=== PATIENT | female | born 1965 | race Two or more races ===

== ENCOUNTER 2017-03-03 06:46 | Emergency (ER) | payer OTHER ==
[~2017-03-03] VITALS: Ht 162.6 cm; Wt 65.8 kg
[~2017-03-03 06:46] MED LIST: LEVAQUIN500 MG PO; VALSARTAN-HCTZ1 EAC1
[2017-03-03] MEDS ORDERED: NORVASC2.5 M1 (07:18)
[2017-03-03] MEDS ORDERED: DIOVAN320 MG (07:19)
[2017-03-03] MEDS ORDERED: TOPROL XL50 M1 (07:19)
== END 2017-03-03 10:18 | disposition home or self-care (01) ==
LOC: ER 06:46
DX: B34.9 Viral infection, unspecified (principal)

== ENCOUNTER 2017-06-19 08:20 | Outpatient (CLI) | payer OTHER ==
[~2017-06-19 08:20] MED LIST changes: +DIOVAN320 MG; +NORVASC2.5 M1; +TOPROL XL50 M1
== END 2017-06-19 08:22 | disposition home or self-care (01) ==
LOC: RAD 08:20
DX: R91.8 Other nonspecific abnormal finding of lung field (principal)

== ENCOUNTER → 2017-07-04 | Outpatient (CLI) | payer OTHER | END | disposition home or self-care (01) | LOC: TOM 10:03 | DX: D35.02 Benign neoplasm of left adrenal gland (principal) ==

== ENCOUNTER 2017-12-16 08:39 | Outpatient (CLI) | payer OTHER | END 2017-12-16 08:41 | disposition home or self-care (01) | LOC: MAMO-SONO 08:39 | DX: Z12.31 Encounter for screening mammogram for malignant neoplasm of breast (principal); N64.4 Mastodynia; D25.1 Intramural leiomyoma of uterus ==

== ENCOUNTER 2018-09-29 08:29 | Outpatient (CLI) | payer OTHER | END 2018-09-29 08:37 | disposition home or self-care (01) | LOC: SONOGRAMA 08:29 | DX: E04.1 Nontoxic single thyroid nodule (principal) ==

== ENCOUNTER 2019-04-20 09:33 | Outpatient (CLI) | payer OTHER | END 2019-04-20 14:49 | disposition home or self-care (01) | LOC: TOM 09:33 | DX: D35.02 Benign neoplasm of left adrenal gland (principal) ==

== ENCOUNTER 2021-12-15 06:39 | Outpatient (CLI) | payer OTHER | END 2021-12-15 06:40 | disposition home or self-care (01) | LOC: LAB 06:39 | DX: N95.1 Menopausal and female climacteric states (principal); E78.00 Pure hypercholesterolemia, unspecified ==

== ENCOUNTER 2023-12-03 07:36 | Outpatient (CLI) | payer OTHER | END 2023-12-03 07:49 | disposition home or self-care (01) | LOC: RAD 07:36 | DX: J15.9 Unspecified bacterial pneumonia (principal) ==